=== PATIENT | female | born 1985 | race African-American/Black ===

== ENCOUNTER 2020-06-06 14:05 | Emergency (ER) | payer MEDICARE ==
[~2020-06-06] VITALS: Ht 160 cm; Wt 50.0 kg
[2020-06-06 14:19] VITALS: BP 110/57
== END 2020-06-06 16:14 | disposition left against medical advice (07) ==
LOC: ER 14:05
DX: Z53.21 Procedure and treatment not carried out due to patient leaving prior to being seen by health care provider (principal)